=== PATIENT | male | born 1955 | race African-American/Black ===

== ENCOUNTER → 2018-04-20 | Outpatient (CLI) | payer BC ==
--- NOTE | 2018-04-23 02:31 | PCVCIMAG ---
APPROVED REPORT Study performed: 04/20/2018 15:20:44 EXAM: Comprehensive 2D, Doppler, and color-flow Echocardiogram Patient Location: Echo lab Status: routine BSA: 2.26 HR: 72 bpmBP: 122/94 mmHg Rhythm: NSR Other Information Study Quality: Adequate Risk Factors: Cardiac Risk Factors: HTN, Hyperlipidemia Indications Diabetes Atrial Fibrillation 2D Dimensions IVSd: 13.83 (7-11mm) LVDd: 47.96 mm PWd: 12.59 (7-11mm)Ascending Ao: 38.27 (22-36mm) LVDs: 31.88 (25-40mm) Left Atrium: 43.26 (27-40mm) Aortic Root: 36.82 mm LV Single Plane 4CH: 60.59 % LV Single Plane 2CH: 62.76 % Biplane EF: 60.2 % Volumes Left Atrial Volume (Systole) Single Plane 4CH: 87.98 mLSingle Plane 2CH: 96.83 mL LA ESV Index: 44.00 mL/m2 Aortic Valve AoV Peak Raheem.: 1.55 m/s AO Peak Gr.: 9.60 mmHgLVOT Max P.02 mmHg LVOT Max V: 1.12 m/s AI Vmax: 5.37 m/s AI Robertson: 3.22 m/s2 AI PHT: 483.40 ms Mitral Valve E/A Ratio: 0.9 MV Decel. Time: 268.57 ms MV E Max Raheem.: 0.47 m/s MV A Raheem.: 0.55 m/s IVRT: 128.03 ms Pulmonary Valve PV Peak Raheem.: 0.97 m/sPV Peak Gr.: 3.75 mmHg Pulmonary Vein P Vein S: 0.29 m/sP Vein A: 0.35 m/s P Vein D: 0.47 m/sP Vein A Dur.: 141.9 msec P Vein S/D Ratio: 0.62 Tricuspid Valve TR Peak Raheem.: 2.63 m/s TR Peak Gr.: 27.66 mmHg TV Vmax: 0.44 m/s Left Ventricle The left ventricle is normal size. There is normal LV segmental wall motion. Mild to moderate concentric left ventricular hypertrophy. The left ventricular systolic function is normal. The left ventricular ejection fraction is within the lower limits of normal range. LVEF is 50-55%. Grade I - abnormal relaxation pattern. Right Ventricle The right ventricle is normal size. The right ventricular systolic function is normal. Atria Left atrium is moderately dilated. The right atrium size is normal. Aortic Valve The aortic valve is normal in structure. Mild to moderate aortic regurgitation. There is no aortic valvular stenosis. Mitral Valve Mildly thickened anterior mitral valve leaflet. Mild mitral regurgitation. No evidence of mitral valve stenosis. Tricuspid Valve The tricuspid valve is normal in structure. Mild tricuspid regurgitation with PAP of 35 mmHg. Pulmonic Valve The pulmonary valve is normal in structure. Mild pulmonic regurgitation. Great Vessels The aortic root is normal in size. IVC is normal in size and collapses >50% with inspiration. Pericardium There is no pericardial effusion. There is no pleural effusion. <Conclusion> The left ventricle is normal size. LVEF is 50-55%. Left atrium is moderately dilated. The aortic valve is normal in structure. Mild to moderate aortic regurgitation. Mildly thickened anterior mitral valve leaflet. Mild mitral regurgitation. The tricuspid valve is normal in structure. Mild tricuspid regurgitation with PAP of 35 mmHg. The pulmonary valve is normal in structure. Mild pulmonic regurgitation. There is no pericardial effusion.
== END | disposition home or self-care (01) ==
LOC: PCVCIMAG 15:46
PROVIDERS: ATTEND Internal Medicine
DX: I08.3 Combined rheumatic disorders of mitral, aortic and tricuspid valves (principal); I48.91 Unspecified atrial fibrillation; E78.5 Hyperlipidemia, unspecified; I10 Essential (primary) hypertension; E11.9 Type 2 diabetes mellitus without complications
CPT/HCPCS: 93306

== ENCOUNTER → 2019-02-11 | Outpatient (CLI) | payer BC ==
[~2019-02-11] MED LIST: REGADENOSON 0.4 MG/5 ML DISP.SYRIN. IV ONE
--- NOTE | 2019-02-11 23:36 | PCVCIMAG ---
APPROVED REPORT Study performed: 02/11/2019 08:11:54 EXAM: Comprehensive 2D, Doppler, and color-flow Echocardiogram Patient Location: Echo lab Status: routine BSA: 2.22 HR: 95 bpmBP: 100/80 mmHg Rhythm: Atrial Fibrillation Other Information Study Quality: Good Risk Factors: Cardiac Risk Factors: HTN, Hyperlipidemia 2D Dimensions IVSd: 15.25 (7-11mm)LVOT Diam: 24.75 (18-24mm) LVDd: 49.56 mm PWd: 9.31 (7-11mm)Ascending Ao: 38.31 (22-36mm) LVDs: 40.98 (25-40mm) Left Atrium: 46.48 (27-40mm) Aortic Root: 33.23 mm LV Single Plane 4CH: 52.34 % LV Single Plane 2CH: 44.63 % Biplane EF: 46.8 % Volumes Left Atrial Volume (Systole) Single Plane 4CH: 102.69 mLSingle Plane 2CH: 104.71 mL LA ESV Index: 52.00 mL/m2 Aortic Valve AoV Peak Raheem.: 1.37 m/s AO Peak Gr.: 7.48 mmHgLVOT Max P.02 mmHg LVOT Max V: 0.91 m/s PEGGY Vmax: 3.22 cm2 AI Vmax: 4.84 m/s AI [place]: 1.97 m/s2 AI PHT: 732.53 ms Mitral Valve E/A Ratio: 1.0 MV E Max Raheem.: 0.74 m/s MV A Raheem.: 0.73 m/s Pulmonary Valve PV Peak Gr.: 0.98 mmHg Tricuspid Valve TR Peak Raheem.: 2.38 m/s TR Peak Gr.: 22.75 mmHg Left Ventricle The left ventricle is normal size. There is normal LV segmental wall motion. There is normal left ventricular wall thickness. Left ventricular systolic function is borderline. LVEF is 50%. This study is not technically sufficient to allow evaluation of the LV diastolic function due to atrial fibrillation. Right Ventricle The right ventricle is normal size. The right ventricular systolic function is normal. Atria Left atrium is severely dilated. Right atrium is at the upper limits of normal. Aortic Valve The aortic valve is normal in structure. Mild aortic regurgitation. There is no aortic valvular stenosis. Mitral Valve The mitral valve is normal in structure. Moderate mitral regurgitation. No evidence of mitral valve stenosis. Tricuspid Valve The tricuspid valve is normal in structure. Mild tricuspid regurgitation. Pulmonary artery pressure is 30mmHg. Pulmonic Valve The pulmonary valve is normal in structure. There is no pulmonic valvular regurgitation. Great Vessels The aortic root is normal in size. IVC is normal in size and collapses >50% with inspiration. Pericardium There is no pericardial effusion. <Conclusion> The left ventricle is normal size. LVEF is 50%. Left atrium is severely dilated. Right atrium is at the upper limits of normal. The aortic valve is normal in structure. Mild aortic regurgitation. The mitral valve is normal in structure. Moderate mitral regurgitation. The tricuspid valve is normal in structure. Mild tricuspid regurgitation. Pulmonary artery pressure is 30mmHg. The pulmonary valve is normal in structure. There is no pericardial effusion.
--- NOTE | 2019-02-13 14:38 | PCVCIMAG ---
APPROVED REPORT Imaging Protocol: Rest Tc-99m/Stress Tc-99m 1 day Study performed: 02/11/2019 09:23:23 Indication: Atrial Fibrillation Patient Location: Out-Patient Stress Nurse: Dania Hawkins RN [place] Tech:Amparo MIKE DossMT Ht: 6 ft 0 in Wt: 214 lbs BSA: 2.19 m2 HR: 100 bpm BP: 131/86 mmHg BMI: 29.02 Rhythm: Atrial Fibrillation, nonspecific ST abnormalities Medical History Medical History: Hyperlipidemia, HTN Medications: Eliquis, Atorvastatin, Metoprolol, Verapamil Allergies: PCN Cardiac Risk Factors: Age Pretest Chest Pain Characteristics: No chest pain Exercise History: Indeterminate Physical Disabilities: Knees Meds Held (24 hrs): Metoprolol Resting Data Rest SPECT myocardial perfusion imaging was performed in supine position 45 minutes following the intravenous injection of 10.5 mCi of Tc-99m Sestamibi. Time of rest injection: 0900 Date: 02/11/2019 Administration Route: IV Administration Site: Right Arm Pharmacologic Stress Pharmacologic stress test was performed by injecting Regadenoson 0.4 mg IV push over 10-15 seconds immediately followed by the intravenous injection of 34.1 mCi of Tc-99m Sestamibi. Time of stress injection: 1045 Date: 02/11/2019 Administration Route: IV Administration Site: Right Arm Gated Stress SPECT was performed 45 minutes after stress injection. The images were gated to evaluate regional wall motion and calculate left ventricular ejection fraction. Stress Test Details Stress Test: Pharmacologic stress testing performed using 0.4 mg of regadenoson per 5 mL given IV over 10 seconds. Reason for pharmacologic stress test: Atrial Fibrillation and knee issues. HRMax Heart Rate (APMHR): 159 bpm Resting HR: 100 bpmTarget HR (85% APMHR): 135 bpm Max HR Achieved: 150 bpm % of APMHR: 94 Recovery HR: 133 bpm BP Resting BP: 131/86 mmHg Max BP: 136/84 mmHg Recovery BP: 136/98 mmHg ECG Resting ECG: Atrial Fibrillation, nonspecific ST abnormalities Stress ECG: Atrial Fibrillation, nonspecific ST abnormalities and Rapid ventricular response Arrhythmia: PVC's Recovery ECG: Atrial Fibrillation, nonspecific ST abnormalities and Rapid ventricular response Clinical Reason for Termination: Completed protocol Stress Symptoms: Dyspnea, Lightheaded Symptoms resolved with caffeine. Stress ECG Conclusion 1. Adequate response intravenous Lexiscan 2. Inadequate heart rate for ECG diagnosis Study Data Post stress, the left ventricular ejection was 52%.. SSS: 0 SRS: 0 SDS: 0 TID = 0.82. Perfusion There is a medium area of moderately reduced uptake in the basal and mid segment of the inferior wall which is seen on the stress images as well as the resting images. This area thickens and moves normally and is most consistent with attenuation artifact. Nuclear Conclusion ECG Findings: non-diagnostic Clinical Findings: negative for ischemia Nuclear Findings: negative for ischemia Exercise Capacity: not assessed Left Ventricular Function: normal 1. Low risk study 2. Post exercise left ventricle ejection fraction of 52% without wall motion abnormalities <Conclusion> 1. Adequate response intravenous Lexiscan 2. Inadequate heart rate for ECG diagnosis
== END | disposition home or self-care (01) ==
LOC: PCVCIMAG 08:06
PROVIDERS: ATTEND Internal Medicine
DX: I08.3 Combined rheumatic disorders of mitral, aortic and tricuspid valves (principal); I48.91 Unspecified atrial fibrillation; Z88.0 Allergy status to penicillin
CPT/HCPCS: 78452; 93017; 93306; A9500; J2785